=== PATIENT | female | born 1985 | race Caucasian/White ===

== ENCOUNTER 2020-09-08 09:35 | Day surgery (SDC) | payer BC ==
[~2020-09-08] VITALS: Ht 175.3 cm; Wt 76.1 kg
[2020-09-08] MEDS ORDERED: LEXAPRO20 MG PO (10:29)
[2020-09-08] MEDS ORDERED: XANAX .25M0.25 MG/TA PO (10:30)
[2020-09-08] MEDS ORDERED: NUVARING VAG RING VG (10:31)
[2020-09-08] MEDS ORDERED: DOXYCYCLINE HY100 MG PO (10:32)
[2020-09-08 10:52] VITALS: BP 113/82; PULSE 93; TEMP 98.3
[2020-09-08 11:55] VITALS: BP 124/85; PULSE 82; TEMP 97.6
--- NOTE | 2020-09-08 11:55 | NUR ---
pt to [facility] via cart from endo lab, walked to chair, gait stable, call light in reach, no c/o
[2020-09-08 12:10] VITALS: BP 119/77; PULSE 82
--- NOTE | 2020-09-08 12:10 | NUR ---
Dr into talk with pt on results, takes snack
[2020-09-08 12:25] VITALS: BP 121/90; PULSE 85
--- NOTE | 2020-09-08 12:30 | NUR ---
reviewed discharge inst. with pt on followup, recommendation and activity with verbal understandng. pt called for samara dorado intact. Up in room dressed and discharged via w/c
== END 2020-09-08 12:30 | disposition home or self-care (01) ==
LOC: SDCO 09:35
DX: R19.4 Change in bowel habit (principal); K62.89 Other specified diseases of anus and rectum; R15.2 Fecal urgency; N93.8 Other specified abnormal uterine and vaginal bleeding; N85.8 Other specified noninflammatory disorders of uterus; N92.6 Irregular menstruation, unspecified; F32.9 Major depressive disorder, single episode, unspecified; F41.9 Anxiety disorder, unspecified; Z20.822 Contact with and (suspected) exposure to COVID-19; Z79.899 Other long term (current) drug therapy; Z91.048 Other nonmedicinal substance allergy status; Z85.3 Personal history of malignant neoplasm of breast; Z80.51 Family history of malignant neoplasm of kidney; Z80.0 Family history of malignant neoplasm of digestive organs; Z80.1 Family history of malignant neoplasm of trachea, bronchus and lung
CPT/HCPCS: J2704; J3010; J7030

== ENCOUNTER → 2021-09-26 | Outpatient (CLI) | payer BC ==
[~2021-09-26] MED LIST: DOXYCYCLINE HY100 MG PO; LEXAPRO20 MG PO; NUVARING VAG RING VG; XANAX .25M0.25 MG/TA PO
== END ==
LOC: COL.RAD 09:30
DX: R10.11 Right upper quadrant pain (principal)
CPT/HCPCS: A9537